=== PATIENT | male | born 1995 | race Caucasian/White ===

== ENCOUNTER 2016-11-03 21:50 | Emergency (ER) | payer OTHER ==
--- NOTE | 2016-11-03 22:44 | ED GI/GU/ABDOMINAL COMPLAINT ---
History of Present Illness General Chief Complaint: Abdominal Pain/Flank Pain Stated Complaint: ABD PAIN Source: patient Exam Limitations: no limitations Vital Signs & Intake/Output Vital Signs & Intake/Output Vital Signs Date Time Temp Pulse Resp B/P Pulse O2 O2 Flow FiO2 Ox Delivery Rate 11/04 0044 100 Room Air 11/04 0043 98.6 68 18 120/68 100 Room Air 11/03 2215 98.0 64 20 121/70 98 ED Intake and Output 11/04 0000 11/03 1200 Intake Total Output Total Balance Patient 145 lb Weight Allergies Coded Allergies: No Known Allergies (11/03/16) Reconcile Medications Omeprazole Magnesium (Prilosec Otc) 20 MG TABLET.DR 1 TAB PO DAILY PUD Triage Note: PER PT PAIN TO [facility] SINCE 11/01/16 ?ULCER TAKING MOTRIN FOR SHOULDER PAIN ON 1ST DAY LOSS OF APPETITE AND CONSTIPATED NO BLOOD IN STOOL Triage Nurses Notes Reviewed? yes Duration: constant Timing: recent history Severity Numbers: 6 Radiation: no radiation Activities at Onset: none HPI: Patient is a 21-year-old male who presents emergency room with concerns of 2 days of persistent moderate left lower quadrant abdominal pain. Patient does state that for injury from skiing he hurt his shoulder when he's been taking NSAIDs for approximately 1 month. Patient stopped taking NSAIDs 2 days ago when his symptoms began. Last bowel movement was today no blood and no melena noted. Patient denies any change in symptoms after eating or drinking. Denies any fever chills back pain dysuria hematuria nausea vomiting (EUSEBIO COOK) Past History Travel History Traveled to [place] past 21 day No Medical History Any Pertinent Medical History? none Neurological: NONE EENT: NONE Cardiovascular: NONE Respiratory: NONE Gastrointestinal: NONE Hepatic: NONE Renal: NONE Musculoskeletal: NONE Psychiatric: NONE Endocrine: NONE Surgical History Surgical History: non-contributory Psychosocial History What is your primary language Sinhala Tobacco Use: Never used Family History Hx Contributory? No (EUSEBIO COOK) Review of Systems Review of Systems Constitutional: Reports: no symptoms. EENTM: Reports: no symptoms. Respiratory: Reports: no symptoms. Cardiovascular: Reports: no symptoms. GI: Reports: see HPI, abdominal pain. Genitourinary: Reports: no symptoms. Musculoskeletal: Reports: no symptoms. Skin: Reports: no symptoms. Neurological/Psychological: Reports: no symptoms. Hematologic/Endocrine: Reports: no symptoms. Immunologic/Allergic: Reports: no symptoms. All Other Systems: Reviewed and Negative (EUSEBIO COOK) Physical Exam Physical Exam General Appearance: no apparent distress, alert, comfortable Gastrointestinal: normal bowel sounds, soft, non-tender Comments: Well-developed well-nourished person in no acute distress HEENT: Normal EENT exam, extraocular motion intact, no nystagmus. Pupils equally round and reactive to light and accommodation. Nose is atraumatic. External auditory canal and Tympanic membranes clear. Pharynx normal. No swelling or edema. Neck: Supple, no lymphadenopathy, normal range of motion without pain or tenderness Back: Nontender, no CVA tenderness. Cardiovascular: Regular rate and rhythms no murmurs rubs or gallops, normal JVP Respiratory: Chest nontender. No respiratory distress.breath sounds clear to auscultation bilaterally Abdomen: Soft, nontender nondistended, no appreciable organomegaly. Normal bowel sounds. No ascites Extremity: No edema, no calf tenderness to palpation, normal and equal pulses. Neuro: Alert oriented x3, motor sensory normal, Skin: No appreciable rash on exposed skin, skin is warm and dry. Psych: Mood and affect is normal, memory and judgment is normal. Core Measures ACS in differential dx? No Severe Sepsis Present: No Septic Shock Present: No (EUSEBIO COOK) Progress Differential Diagnosis: AAA, AMI, appendicitis, biliary colic, bowel obstruction , colon cancer, cholecystitis, diverticulitis, epididymitis, esophageal varices, gastritis, hepatitis, hernia, hemorrhoids, ischemic bowel, inflamm bowel dis, Lolis-Alicia tear, orchitis, pancreatitis, prostatitis, peptic ulcer, PUD/GERD, perforated viscous, pyelonephritis, SBO, testicular torsion, ureterolithiasis, urinary retention, urethritis, UTI/pyelo Plan of Care: Orders Procedure Date/time Status LIPASE 11/03 2328 Complete COMPREHENSIVE METABOLIC PANEL 11/03 2328 Complete CBC WITHOUT DIFFERENTIAL 11/03 2328 Complete AMYLASE 11/03 2328 Complete Laboratory Tests 11/03/16 2359: Anion Gap 8, Estimated GFR > 60, BUN/Creatinine Ratio 25.7 H, Glucose 94, Calcium 9.9, Total Bilirubin 0.5, AST 22, ALT 37, Alkaline Phosphatase 102, Total Protein 7.0, Albumin 4.3, Globulin 2.7, Albumin/Globulin Ratio 1.6, Amylase 53, Lipase 56, CBC w Diff NO MAN DIFF REQ, RBC 5.06, MCV 87.6, MCH 29.9, RDW 13.6, MPV 7.0 L, Gran % 68.1, Lymphocytes % 23.6, Monocytes % 6.2, Eosinophils % 1.8, Basophils % 0.3, Absolute Granulocytes 6.5, Absolute Lymphocytes 2.2, Absolute Monocytes 0.6, Absolute Eosinophils 0.2, Absolute Basophils 0, PUBS MCHC 34.2 Patient currently is resting comfortable in no apparent distress Patient has nontender abdomen however due to history and present illness there is suspicion of peptic ulcer disease patient was given GI cocktail Patient currently is in no apparent distress and no right lower quadrant pain on exam signs of appendicitis Upon discharge patient looks well He was strongly advised follow-up with gastroenterology if symptoms continue. (EUSEBIO COOK) Initial ED EKG: none (EUSEBIO COOK) Departure Departure Disposition: HOME OR SELF CARE Condition: Stable Clinical Impression Primary Impression: Abdominal pain Referrals: AMELIA GALARZA,TRICE HANSEN DO,TIMUR Cormier (PCP/Family) Additional Instructions: As discussed begin the prescription of Prilosec as directed for your symptoms. If no better on Thursday follow-up with ordering machine operator Dr. Melo. If symptoms worsen return to the emergency room. Continue to NOT USE NSAIDs such as Aleve ibuprofen or Advil as this may worsen her symptoms Departure Forms: Customer Survey General Discharge Information Prescriptions: Current Visit Scripts Omeprazole Magnesium (Prilosec Otc) 1 TAB PO DAILY #20 TAB (EUSEBIO COOK) PA/TENNIS PLAYER Co-Sign Statement Statement: ED Attending supervision documentation- [] I saw and evaluated the patient. I have also reviewed all the pertinent lab results and diagnostic results. I agree with the findings and the plan of care as documented in the PA's/TENNIS PLAYER's documentation. [X] I have reviewed the ED Record and agree with the PA's/TENNIS PLAYER's documentation. [] Additions or exceptions (if any) to the PAs/TENNIS PLAYER's note and plan are summarized below: [] (LA GALARZA,DALLAS Singleton)
[2016-11-04 00:13] LABS: ABSOLUTE BASOPHIL COUNT 0 /CUMM (0.0-0.2); ABSOLUTE EOSINOPHIL COUNT 0.2 /CUMM (0.0-0.7); ABSOLUTE GRANULOCYTE CT 6.5 /CUMM (1.4-6.5); ABSOLUTE LYMPH COUNT 2.2 /CUMM (1.2-3.4); ABSOLUTE MONOCYTE COUNT 0.6 /CUMM (0.10-0.60); BASOPHIL % 0.3 % (0.0-2.0); EOSINOPHIL % 1.8 % (0-5); GRANULOCYTE % 68.1 % (42.2-75.2); HEMATOCRIT 44.3 % (42-52); MEAN CORPUSCULAR HGB 29.9 PG (27.0-31.0); MEAN CORPUSCULAR HGB CONC 34.2 G/DL (33.0-37.0); MEAN CORPUSCULAR VOLUME 87.6 FL (80.0-94.0); PLATELET COUNT 288 /CUMM (130-400); RBC DISTRIBUTION WIDTH 13.6 % (11.5-14.5); RED BLOOD CELL CT 5.06 /CUMM (4.70-6.10); WHITE BLOOD CELL COUNT 9.5 /CUMM (4.8-10.8)
[2016-11-04] MEDS ORDERED: PRILOSEC OTC20 M1 PO (00:38)
[2016-11-04 00:43] VITALS: BP 120/68
== END 2016-11-04 00:47 ==
LOC: ERH 21:50
PROVIDERS: Physician Assistant
DX: R10.32 Left lower quadrant pain (principal)